=== PATIENT | male | born 2000 | race Two or more races ===

== ENCOUNTER 2024-10-30 18:16 | Emergency (ER) | payer OTHER ==
[~2024-10-30] VITALS: Ht 188 cm; Wt 131.0 kg
--- NOTE | 2024-10-30 18:39 | ED.PDOC ---
History of Present Illness HPI Comments 24Y M presents to ED for chief complaint abd pain. Pt states the abd pain is chronic and intermittent. Additional symptom includes constipation. Today, the pain worsened so pt came to the ED. Pt states he did not go to work and is requesting a work note. Time Seen by MD: 18:35 Reviewed Notes: Medications, Allergies Information Source: Patient Mode of Arrival: Ambulatory Severity: Mild Timing: Months Duration: Intermittent Past Medical History PAST MEDICAL HISTORY: Denies Surgical History: Denies all surgeries Family History Family History: Unknown Social History Smoker: Non-Smoker Alcohol: Denies ETOH Use Drugs: Denies Drug Use Lives In: Home Constitutional: denies: chills, diaphoresis, fatigue, fever, malaise, sweats, weakness, others EENTM: denies: blurred vision, double vision, ear bleeding, ear discharge, ear drainage, ear pain, ear ringing, eye pain, eye redness, hearing loss, mouth pain, mouth swelling, nasal discharge, nose bleeding, nose congestion, nose pain, photophobia, tearing, throat pain, throat swelling, voice changes, others Respiratory: denies: cough, hemoptysis, orthopnea, SOB at rest, shortness of breath, SOB with excertion, stridor, wheezing, others Cardiovascular: denies: chest pain, dizzy spells, diaphoresis, Dyspnea on exertion, edema, irregular heart beat, left arm pain, lightheadedness, palpitations, PND, syncope, others Gastrointestinal: reports: abdominal pain, constipated; denies: abdomen distended, blood streaked bowels, diarrhea, dysphagia, difficulty swallowing, hematemesis, melena, nausea, poor appetite, poor fluid intake, rectal bleeding, rectal pain, vomiting, others Genitourinary: denies: burning, dysuria, flank pain, frequency, hematuria, incontinence, penile discharge, penile sore, pain, testicle pain, testicle swelling, urgency, others Neurological: denies: dizziness, fainting, headache, left sided numbness, left sided weakness, numbness, paresthesia, pre-existing deficit, right sided numbness, right sided weakness, seizure, speech problems, tingling, tremors, weakness, others Musculoskeletal: denies: back pain, gout, joint pain, joint swelling, muscle pain, muscle stiffness, neck pain, others Integumetry: denies: bruises, change in color, change in hair/nails, dryness, laceration, lesions, lumps, rash, wounds, others Allergic/Immunocompromised: denies: Difficulty Healing, Frequent Infections, Hives, Itching, others Hematologic/Lymphatic: denies: anemia, blood clots, easy bleeding, easy bruising, swollen glands, others Endocrine: denies: excessive hunger, excessive sweating, excessive thirst, excessive urination, flushing, intolerance to cold, intolerance to heat, unexplained weight gain, unexplained weight loss, others Psychiatric: denies: anxiety, bipolar disorder, depression, hopeless, panic disorder, schizophrenia, sleepless, suicidal, others All Other Systems: Reviewed and Negative Physical Exam General Appearance: No Apparent Distress, Normal HEENT: Normal ENT Inspection, Pharynx Normal, TMs Normal Neck: Full Range of Motion, Non-Tender, Normal, Normal Inspection Respiratory: Chest Non-Tender, Lungs Clear, No Accessory Muscle Use, No Respiratory Distress, Normal Breath Sounds Cardiovascular: No Edema, No JVD, No Murmur, No Gallop, Normal Peripheral Pulses, Regular Rate/Rhythm Breast Exam: Deferred Gastrointestinal: No Organomegaly, Non Tender, No Pulsatile Mass, Normal Bowel Sounds, Soft Genitalia: Deferred Pelvic: Deferred Rectal: Deferred Extremities: No calf tenderness, Normal capillary refill, Normal inspection, Normal range of motion, Non-tender, No pedal edema Musculoskeletal : Apperance: Normal Neurologic: Alert, reacher II-XII nml as Tested, No Motor Deficits, Normal Affect, Normal Mood, No Sensory Deficits Cerebellar Function: Normal Reflexes: Normal Skin: Dry, Normal Color, Warm Lymphatic: No Adenopathy Was a procedure done? Was a procedure done?: No Differential Dx Considerations may include: constipation, gastroenteritis X-Ray, Labs, Meds, VS Comment This 24-year-old male presents secondary to several year history of new abdominal pain associated with constipation. He had pain earlier the day. He is currently completely asymptomatic. He has no other complaints such as headache, vision change, chest pain, flank pain, dysuria, urine frequency. Denies any fever, chills, sweats. Denies modifying factors. Denies radiation of symptoms. As the patient is asymptomatic and does the cause of his pain, he will be discharged home. He is asked to eat a heart healthy high-fiber diet. He is a very well hydrated. She will consider [id number] laxatives. I will discharge the patient home with a prescription for Metamucil and milk of magnesia. Time of 1ST Reevaluation: 19:05 Reevaluation 1ST: Unchanged Time of 2ND Reevaluation: 18:43 Reevaluation 2ND: Unchanged Patient Education/Counseling: Diagnosis, Treatment Family Education/Counseling: No Family Present Departure 1 Departure Time of Disposition: 18:44 Impression: Primary Impression: Abdominal pain Additional Impression: Constipation Disposition: 01 HOME / SELF CARE / HOMELESS Condition: Good Discharged With: Self Critical Care Note Critical Care Time?: No Stability Stability form required: No Heart Score Heart Score: Heart Score Response (Comments) Value History N/A 0 EKG N/A 0 Age N/A 0 Risk Factors N/A 0 Troponin N/A 0 Total 0 I personally scribed for SUSAN QUINTERO MD ([email or web address]) on 10/30/24 at 18:39. Electronically submitted by Radha Rubin ([email or web address]). SUSAN QUINTERO MD Oct 30, 2024 18:39
[2024-10-30] MEDS ORDERED: FIBE1CHW3 PO (18:45)
[2024-10-30 20:24] VITALS: BP 137/75; PULSE 61; RESP 18; TEMP 98.5; O2SAT 98
== END 2024-10-30 20:32 | disposition home or self-care (01) ==
LOC: ER 18:16
DX: K59.00 Constipation, unspecified (principal); R10.9 Unspecified abdominal pain

== ENCOUNTER 2024-11-10 18:46 | Emergency (ER) | payer OTHER ==
[~2024-11-10] VITALS: Ht 185.4 cm; Wt 127.0 kg
[2024-11-10 20:06] VITALS: BP 138/83; PULSE 79; RESP 17; TEMP 98.8; O2SAT 96
[2024-11-10] MEDS ORDERED: IBUP-1456 PO (20:41)
--- NOTE | 2024-11-10 20:42 | ED.PDOC ---
Musculoskeletal HPI Comments 24-year-old male presents to ER with complaints of right great toe pain x3 days. Patient reports he has been experiencing right great toe pain x3 days, denying any trauma/injury. He rates his current pain a 7/10 to right great toe without radiation. Denies use of medications for current symptoms. Patient presents to ER ambulatory on arrival, with steady gait, in no distress. Denies fever, body aches, chills, skin changes, numbness/tingling or any further symptoms/complaints Chief Complaint: Lower Extremity Time Seen by MD: 18:56 Primary Care Provider: UNKNOWN Reviewed Notes: Nurses Notes, Medications, Allergies Allergies: Coded Allergies: NO KNOWN ALLERGIES (Unverified , 10/30/24) Home Meds Active Scripts Ibuprofen (Ibuprofen) 800 Mg Tab, 1 TAB PO TID PRN, #30 TAB 0 Refills Prov:EDVIN FRANCIS 11/10/24 Information Source: Patient Mode of Arrival: Ambulatory Past Medical History PAST MEDICAL HISTORY: Denies Surgical History: Denies all surgeries Family History Family History: Unknown Social History Smoker: Non-Smoker Alcohol: Denies ETOH Use Drugs: Marijuana Lives In: Home Constitutional: denies: chills, diaphoresis, fatigue, fever, malaise, sweats, weakness, others EENTM: denies: blurred vision, double vision, ear bleeding, ear discharge, ear drainage, ear pain, ear ringing, eye pain, eye redness, hearing loss, mouth pain, mouth swelling, nasal discharge, nose bleeding, nose congestion, nose pain, photophobia, tearing, throat pain, throat swelling, voice changes, others Respiratory: denies: cough, hemoptysis, orthopnea, SOB at rest, shortness of breath, SOB with excertion, stridor, wheezing, others Cardiovascular: denies: chest pain, dizzy spells, diaphoresis, Dyspnea on exertion, edema, irregular heart beat, left arm pain, lightheadedness, palpitations, PND, syncope, others Gastrointestinal: denies: abdomen distended, abdominal pain, blood streaked bowels, constipated, diarrhea, dysphagia, difficulty swallowing, hematemesis, melena, nausea, poor appetite, poor fluid intake, rectal bleeding, rectal pain, vomiting, others Genitourinary: denies: burning, dysuria, flank pain, frequency, hematuria, incontinence, penile discharge, penile sore, pain, testicle pain, testicle swelling, urgency, others Neurological: denies: dizziness, fainting, headache, left sided numbness, left sided weakness, numbness, paresthesia, pre-existing deficit, right sided numbness, right sided weakness, seizure, speech problems, tingling, tremors, weakness, others Musculoskeletal: reports: others (As stated in HPI) Integumetry: denies: bruises, change in color, change in hair/nails, dryness, laceration, lesions, lumps, rash, wounds, others Allergic/Immunocompromised: denies: Difficulty Healing, Frequent Infections, Hives, Itching, others Hematologic/Lymphatic: denies: anemia, blood clots, easy bleeding, easy bruising, swollen glands, others Endocrine: denies: excessive hunger, excessive sweating, excessive thirst, excessive urination, flushing, intolerance to cold, intolerance to heat, unexplained weight gain, unexplained weight loss, others Psychiatric: denies: anxiety, bipolar disorder, depression, hopeless, panic disorder, schizophrenia, sleepless, suicidal, others Physical Exam General Appearance: No Apparent Distress, Obese HEENT: PERRL/EOMI Neck: Full Range of Motion, Non-Tender, Normal Respiratory: Chest Non-Tender, Lungs Clear, No Accessory Muscle Use, No Respiratory Distress, Normal Breath Sounds Cardiovascular: No Murmur, No Gallop, Regular Rate/Rhythm Breast Exam: Deferred Gastrointestinal: NOT DONE Genitalia: Deferred Pelvic: Deferred Rectal: Deferred Extremities: Normal capillary refill, Normal range of motion Musculoskeletal : Extremity Location: Great Toe (Slight TTP to right great toe noted. Patient able to move all toes of right foot. No deformity/skin changes appreciated. Pulses intact. Gait intact without abnormality) Neurologic: Alert, No Motor Deficits, Normal Affect, Normal Mood, No Sensory Deficits Cerebellar Function: Normal Reflexes: Normal Skin: Dry, Normal Color, Warm Peripheral Pulses: 2+ dorsalis pedis (R), 2+ dorsalis pedis (L) Lymphatic: No Adenopathy Was a procedure done? Was a procedure done?: No Sedation Sedation?: No Differential Diagnosis EXT Differential Diagnosis: Fracture, Dislocation, Neurovascular injury X-Ray, Labs, Meds, VS Vital Signs Date Time Temp Pulse Resp B/P (MAP) Pulse Ox O2 Delivery O2 Flow Rate FiO2 11/10/24 20:06 79 17 96 Room Air 11/10/24 20:06 98.8 79 17 138/83 (101) 96 98.8 11/10/24 19:57 98.8 79 17 138/83 (101) 96 Toradol 60 mg IM ordered Patient neurovascularly intact Advised on rest/no strenuous activity, elevation and alternate ice on/off as needed for pain Advised to follow up with PCP in 1-2 days Patient verbalized understanding and agreeable with current plan of care Advised to return to ER immediately if symptoms worsen Time of 1ST Reevaluation: 20:24 Reevaluation 1ST: N/A Patient Education/Counseling: Diagnosis, Treatment, Prognosis, Need For Follow Up Family Education/Counseling: No Family Present Departure 1 Departure Time of Disposition: 20:40 Impression: Primary Impression: Right foot sprain Qualified Codes: S93.601A - Unspecified sprain of right foot, initial encounter Disposition: HOME / SELF CARE / HOMELESS Condition: Stable e-Prescriptions Ibuprofen (Ibuprofen) 800 Mg Tab 1 TAB PO TID PRN, #30 TAB 0 Refills Prov: EDIVN FRANCIS 11/10/24 Discharged With: Self Critical Care Note Critical Care Time?: No Stability Stability form required: No Heart Score Heart Score: Heart Score Response (Comments) Value History N/A 0 EKG N/A 0 Age N/A 0 Risk Factors N/A 0 Troponin N/A 0 Total 0 EDVIN FRANCIS Nov 10, 2024 20:42
[2024-11-10] MEDS: KETOROLAC TROMETH 60MG/2ML VIAL IM ONE (20:50)
== END 2024-11-10 21:37 | disposition home or self-care (01) ==
LOC: ER 18:46
DX: S93.501A Unspecified sprain of right great toe, initial encounter (principal); X58.XXXA Exposure to other specified factors, initial encounter; Y93.89 Activity, other specified; Y92.89 Other specified places as the place of occurrence of the external cause; Y99.8 Other external cause status
CPT/HCPCS: 96372; 99283; J1885

== ENCOUNTER 2024-11-27 15:44 | Emergency (ER) | payer OTHER ==
[~2024-11-27] VITALS: Ht 185.4 cm; Wt 125.0 kg
[~2024-11-27 15:44] MED LIST: IBUP-1456 PO
[2024-11-27 18:54] VITALS: BP 132/85; PULSE 88; RESP 20; TEMP 98.7; O2SAT 95
[2024-11-27] MEDS ORDERED: METH4PAK PO (19:07)
[2024-11-27] MEDS ORDERED: AUG875T PO (19:07)
--- NOTE | 2024-11-27 19:08 | ED.PDOC ---
Eye-HPI HPI Comments 24-year-old male presents to the ED chief complaint flu-like symptoms x3 days patient reports sore throat, body aches, cough. Has been taking [id number] indications with little relief. Ill contacts at home. Denies vomiting, diarrhea, difficulty breathing, shortness breath or chest pain Chief Complaint: Flu like Time Seen by MD: 18:17 Primary Care Provider: UNKNOWN Reviewed Notes: Nurses Notes, Medications, Allergies Allergies: Coded Allergies: NO KNOWN ALLERGIES (Unverified , 10/30/24) Home Meds Active Scripts Methylprednisolone (Medrol Dosepak) 4 Mg Donte, 4 MG PO UD for 6 Days, #21 TAB UAD Prov:ELENA LYNCHK [employer] 11/27/24 Amoxicillin & Pot Clavulanate (AUGMENTIN TABLET) 875 Mg Tb, 875 MG PO BID for 7 Days, #14 TAB Prov:KANCHAN LYNCH [employer] 11/27/24 Ibuprofen (Ibuprofen) 800 Mg Tab, 1 TAB PO TID PRN, #30 TAB 0 Refills Prov:EDVIN FRANCIS 11/10/24 Information Source: Patient Mode of Arrival: Ambulatory Past Medical History PAST MEDICAL HISTORY: Denies Surgical History: Denies all surgeries Family History Family History: Unknown Social History Smoker: Non-Smoker Alcohol: Denies ETOH Use Drugs: Marijuana Lives In: Home Constitutional: reports: chills, fever; denies: diaphoresis, fatigue, malaise, sweats, weakness, others EENTM: reports: nasal discharge, throat pain, throat swelling; denies: blurred vision, double vision, ear bleeding, ear discharge, ear drainage, ear pain, ear ringing, eye pain, eye redness, hearing loss, mouth pain, mouth swelling, nose bleeding, nose congestion, nose pain, photophobia, tearing, voice changes, others Respiratory: reports: cough; denies: hemoptysis, orthopnea, SOB at rest, shor tness of breath, SOB with excertion, stridor, wheezing, others Cardiovascular: denies: chest pain, dizzy spells, diaphoresis, Dyspnea on exertion, edema, irregular heart beat, left arm pain, lightheadedness, palpitations, PND, syncope, others Gastrointestinal: denies: abdomen distended, abdominal pain, blood streaked bowels, constipated, diarrhea, dysphagia, difficulty swallowing, hematemesis, melena, nausea, poor appetite, poor fluid intake, rectal bleeding, rectal pain, vomiting, others Genitourinary: denies: burning, dysuria, flank pain, frequency, hematuria, incontinence, penile discharge, penile sore, pain, testicle pain, testicle swelling, urgency, others Neurological: denies: dizziness, fainting, headache, left sided numbness, left sided weakness, numbness, paresthesia, pre-existing deficit, right sided numbness, right sided weakness, seizure, speech problems, tingling, tremors, weakness, others Musculoskeletal: denies: back pain, gout, joint pain, joint swelling, muscle pain, muscle stiffness, neck pain, others Integumetry: denies: bruises, change in color, change in hair/nails, dryness, laceration, lesions, lumps, rash, wounds, others Allergic/Immunocompromised: denies: Difficulty Healing, Frequent Infections, Hives, Itching, others Hematologic/Lymphatic: denies: anemia, blood clots, easy bleeding, easy bruising, swollen glands, others Endocrine: denies: excessive hunger, excessive sweating, excessive thirst, excessive urination, flushing, intolerance to cold, intolerance to heat, unexplained weight gain, unexplained weight loss, others Psychiatric: denies: anxiety, bipolar disorder, depression, hopeless, panic disorder, schizophrenia, sleepless, suicidal, others Physical Exam General Appearance: No Apparent Distress, Normal HEENT: Pharyngeal Erythema, TMs Normal, Tonsillar Exudate (Grade 3 tonsils with exudate) Neck: Full Range of Motion, Non-Tender, Normal, Normal Inspection Respiratory: Chest Non-Tender, Lungs Clear, No Accessory Muscle Use, No Respiratory Distress, Normal Breath Sounds Cardiovascular: No Edema, No JVD, No Murmur, No Gallop, Normal Peripheral Pulses, Regular Rate/Rhythm Breast Exam: Deferred Gastrointestinal: No Organomegaly, Non Tender, No Pulsatile Mass, Normal Bowel Sounds, Soft Genitalia: Deferred Pelvic: Deferred Rectal: Deferred Extremities: No calf tenderness, Normal capillary refill, Normal inspection, Normal range of motion, Non-tender, No pedal edema Musculoskeletal : Apperance: Normal Neurologic: Alert, master planner II-XII nml as Tested, No Motor Deficits, Normal Affect, Normal Mood, No Sensory Deficits Cerebellar Function: Normal Reflexes: Normal Skin: Dry, Normal Color, Warm Lymphatic: No Adenopathy Was a procedure done? Was a procedure done?: No EENT DIFF Eye: N/A Sore Throat: Epiglottitis, Peritonsillar Abscess, Peritonsillar Cellulitis, Pharyngitis, Streptococcal, Viral Pharyngitis X-Ray, Labs, Meds, VS Vital Signs Date Time Temp Pulse Resp B/P (MAP) Pulse Ox O2 Delivery O2 Flow Rate FiO2 11/27/24 18:54 88 20 95 Room Air 11/27/24 18:54 98.7 88 20 132/85 (101) 95 98.7 11/27/24 16:17 98.7 88 20 132/88 (103) 95 X-Ray, Labs, Meds, VS Comment Likely bacterial. Shunt trial of antibiotics and Medrol Dosepak. Rest increase p.o. fluids with electrolytes consider popsicles for the sore throat follow up with PCP in 2-3 days as necessary ER return precautions given patient indicated understanding agrees with discharge plan of care. Time of 1ST Reevaluation: 19:07 Reevaluation 1ST: Improved Patient Education/Counseling: Diagnosis, Treatment, Prognosis, Need For Follow Up Family Education/Counseling: Diagnosis, Treatment, Prognosis, Need For Follow Up Departure 1 Departure Time of Disposition: 19:06 Impression: Primary Impression: Pharyngitis Qualified Codes: J02.9 - Acute pharyngitis, unspecified Disposition: 01 HOME / SELF CARE / HOMELESS Condition: Stable e-Prescriptions Methylprednisolone (Medrol Dosepak) 4 Mg Donte 4 MG PO UD for 6 Days, #21 TAB UAD Prov: KANCHAN LYNCH 11/27/24 Amoxicillin & Pot Clavulanate (AUGMENTIN TABLET) 875 Mg Tb 875 MG PO BID for 7 Days, #14 TAB Prov: KANCHAN LYNCH 11/27/24 Discharged With: Significant Other Critical Care Note Critical Care Time?: No Stability Stability form required: KANCHAN Lorenzana Nov 27, 2024 19:08
== END 2024-11-27 19:16 | disposition home or self-care (01) ==
LOC: ER 15:49
DX: J02.9 Acute pharyngitis, unspecified (principal); F15.90 Other stimulant use, unspecified, uncomplicated; Z79.899 Other long term (current) drug therapy

== ENCOUNTER 2025-03-06 14:19 | Emergency (ER) | payer OTHER ==
[~2025-03-06] VITALS: Ht 185.4 cm; Wt 126.9 kg
--- NOTE | 2025-03-06 14:31 | ED.PDOC ---
Back pain HPI HPI Comments HPI: Poor Historian. 24-year-old male presents to emergency depart for evaluation of left ankle pain status post basketball sprain injury where he twisted his ankle playing basketball. Denies any other injuries or trauma or fall. Patient states he has been ambulating on it and elevating it and applying ice. He came make sure everything is okay. Patient denies any numbness tingling sensation in his extremity. Patient is neurovascularly intact in the affected extremity. Patient was already wearing a ankle brace that is very appropriate and states that he has crutches at home. Past Medical History: Denies any Past Surgical History: Keloid removal Vitals: temperature of 99.5F, respiratory rate of 18, SpO2 of 97%RA, pulse rate of 91, and a blood pressure of 132/62 REVIEW OF SYSTEMS: CONSTITUTIONAL: Denies acute: fever, diaphoresis, chills, generalized weakness. HEAD: Denies acute: headache, photophobia Eyes: Denies acute: Double vision, vision loss, eye pain, eye discharge. EARS: Denies acute: tinnitus, hearing loss, ear discharge, ear pain, THROAT: Denies acute: sore throat, swelling, difficulty swallowing , pain with swallowing, change in voice. NECK: Denies acute: neck pain, neck swelling, stiff neck. HEART: Denies acute : chest pain, palpitations, LUNGS: Denies acute: SOB, wheezing, cough, hemoptysis ABDOMEN: Denies acute: abdominal pain, Nausea, Vomiting, diarrhea, melena , hematemesis, hematochezia SKIN: Denies acute: rash, redness, lesions, itchiness. EXTREMITIES: Denies acute: calf pain, numbness, tingling, weakness, Denies acute: Low back pain. Neuro: Denies acute: focal neurological deficit, motor or sensory focal neurological deficit, tremors, seizure like activity, confusion, dizziness, change in mental status, loss of bowel or bladder function, cauda equina like symptoms. : Denies acute: dysuria, hematuria, flank pain, increase in urinary frequency. PSYCH: Denies acute: hallucination, suicidal ideation, homicidal ideation. PHYSICAL EXAM: General: -----no---acute distress, awake and alert. Head: normocephalic, atraumatic. Neck: supple, trachea is midline, no swelling. Throat: Normal phonation. Eyes:, no erythema, no purulent discharge, no proptosis, no icterus. Heart: regular rate, regular rhythm, no significant murmur appreciated. Lungs: no apparent respiratory distress, Able to speak in full sentences. No wheezing, no rhonchi, no crackles. No stridors Clear to auscultation bilaterally. Abdomen: non tender to palpation, non distended, soft, no guarding, no rebound, + bowel sounds. Neuro: Awake, Alert, oriented to name, self, situation, follows commands GCS=15. Speech is normal. Skin: no petechia, no purpura, no cyanosis, non-pale, not jaundice. Lower extremities: --no - Pitting edema no deformity, minimal left lateral malleoli focal swelling with mild tenderness to palpation. Makes eye contact. moves all four extremities. Patient is neurovascularly intact in the affected extremity. Pedal pulses palpable. Sensory and motor are present. Minimal tenderness to palpation anterior to the left lateral malleoli Face: no apparent facial droop. Ambulating in the ED independently. Pedal pulses are palpable. ED COURSE: Chief Complaint: Lower Extremity Time Seen by MD: 14:30 Primary Care Provider: UNKNOWN Reviewed Notes: Nurses Notes, Medications Allergies: Coded Allergies: NO KNOWN ALLERGIES (Unverified , 10/30/24) Home Meds Active Scripts Ibuprofen (Ibuprofen) 800 Mg Tab, 1 TAB PO TID PRN, #30 TAB 0 Refills Prov:EDVIN FRANCIS 11/10/24 Information Source: Patient Mode of Arrival: Ambulatory Past Medical History PAST MEDICAL HISTORY: Denies Surgical History: Denies all surgeries Family History Family History: Unknown Social History Smoker: Non-Smoker Alcohol: Denies ETOH Use Drugs: Marijuana Lives In: Home Was a procedure done? Was a procedure done?: No Back Pain Differential Dx Differential Diagnosis: Musculoskeletal Pain, Other (Dislocation, fracture, ligamental injury, bursitis, joint effusion, compartment syndrome, septic joint,) X-Ray, Labs, Meds, VS Vital Signs Date Time Temp Pulse Resp B/P (MAP) Pulse Ox O2 Delivery O2 Flow Rate FiO2 03/06/25 15:43 98.7 72 16 129/68 (88) 95 98.7 03/06/25 15:43 72 16 95 Room Air* 0 21 03/06/25 14:21 99.5 91 18 132/62 (85) 97 99.5 [facility] [id number] [facility] [id number] Ph: [phone] DIAGNOSTIC IMAGING Diagnostic Imaging Report : [id number] Signed PATIENT: PRAVIN BOLES JR ACCT: [id number] UNIT: [id number] : 2000 LOC: ER ROOM / BED: / AGE / SEX: 24 / M ADM STATUS: REG ER SERVICE 1424 ORDERING PHYSICIAN: JOSE GUADALUPE DEVINE DO PROCEDURE(s): LANKL - L ANKLE 3 VIEW REASON: pain injury ORDER NUMBER(s): [id number], ACCESSION NUMBER(s): [id number] EXAM: XY L ANKLE 3 VIEW CLINICAL HISTORY: pain injury COMPARISON: None TECHNIQUE: XY L ANKLE 3 VIEW Findings/Impression: 3 views of the left ankle. There is no evidence of an acute fracture, dislocation, blastic, or lytic lesions. No radiopaque foreign bodies. No joint effusion or superficial soft tissue abnormalities. ATED BY: KYRA RICHMOND DO DICTATED DATE/TIME: 03/06/25 1500 SIGNED BY: KYRA RICHMOND DO SIGNED DATE/TIME: 03/06/25 1500 CC: Time of 1ST Reevaluation: 14:30 Reevaluation 1ST: Unchanged Patient Education/Counseling: Diagnosis, Treatment Family Education/Counseling: No Family Present Comments Patient presented with the above HPI.---left ankle sprain---workup was initiated. patient was found with the above mentioned diagnosis. the following medications were ordered: please refer to order lists of meds and tests obtained by myself Dr. Devine. Patient ED course and VS have been stabilized. Patient has been reassessed in the ED and remained in a stable condition. Pertinent incidental findings were discussed with the patient and/or family. Patient/family voices understanding and is agreeable with plan. Patient has been observed in the ED adequate length of time to insure improvement/stability. Escalation of care considered: Consideration of escalation to observation or admission Patient was DISCHARGED home in a stable condition. All the reports of any imaging studies that were ordered by myself were reviewed by myself. Departure 1 Departure Time of Disposition: 14:32 Impression: Primary Impression: Left ankle sprain Disposition: 01 HOME / SELF CARE / HOMELESS Condition: Stable Additional Instructions: Additional instructions: You MUST follow-up with your primary care/family doctor in 1 to 2 days. If you are unable to see your primary care/family doctor, please return to our emergency room for re-assessment and re-evaluation in 1 to 2 days. Return to the emergency room here in our facility or to the nearest ER [facility] if y our symptoms change or worsen. CONSULTATIONS: you MUST Follow-up for consultation as soon as possible with: -orthopedic doctor in 1-2 days. You MUST call the consultants office yourself to make an appointment. You may need to arrange that through your insurance and/or your primary/family doctor. If you are unable to see the reimbursement consultant in 1 to 2 days, you must return to our emergency room (or any other ER of your choice) for re-assessment and re- evaluation. Adequate fluid hydration. Continue wearing your ankle brace. Leg elevation. Use [id number] Tylenol ibuprofen with food as instructed for pain control. Below is a copy of your radiological report for follow up: [place] [address] Ph: [phone] DIAGNOSTIC IMAGING Diagnostic Imaging Report : [id number] Signed PATIENT: PRAVIN BOLES JR ACCT: [id number] UNIT: [id number] : 2000 LOC: ER ROOM / BED: / AGE / SEX: 24 / M ADM STATUS: REG ER SERVICE 1424 ORDERING PHYSICIAN: JOSE GUADALUPE DEVINE DO PROCEDURE(s): LANKL - L ANKLE 3 VIEW REASON: pain injury ORDER NUMBER(s): [id number], ACCESSION NUMBER(s): [id number] EXAM: XY L ANKLE 3 VIEW CLINICAL HISTORY: pain injury COMPARISON: None TECHNIQUE: XY L ANKLE 3 VIEW Findings/Impression: 3 views of the left ankle. There is no evidence of an acute fracture, dislocation, blastic, or lytic lesions. No radiopaque foreign bodies. No joint effusion or superficial soft tissue abnormalities. ATED BY: KYRA RICHMOND DO DICTATED DATE/TIME: 03/06/25 1500 SIGNED BY: KYRA RICHMOND DO SIGNED DATE/TIME: 03/06/25 1500 CC: Discharged With: Self Critical Care Note Critical Care Time?: No I personally scribed for JOSE GUADALUPE DEVINE DO ([email or web address]) on 03/06/25 at 14:31. Electronically submitted by Axel Bennett ([email or web address]). I personally scribed for JOSE GUADALUPE DEVINE DO ([email or web address]) on 03/06/25 at 14:40. Electr onically submitted by Axel Bennett ([email or web address]). I personally scribed for JOSE GUADALUPE DEVINE DO ([email or web address]) on 03/06/25 at 15:13. Marlys ctronically submitted by Axel Bennett ([email or web address]). JOSE GUADALUPE DEVINE DO Mar 06, 2025 14:31
--- NOTE | 2025-03-06 15:02 | DVH ---
EXAM: XY L ANKLE 3 VIEW CLINICAL HISTORY: pain injury COMPARISON: None TECHNIQUE: XY L ANKLE 3 VIEW Findings/Impression: 3 views of the left ankle. There is no evidence of an acute fracture, dislocation, blastic, or lytic lesions. No radiopaque foreign bodies. No joint effusion or superficial soft tissue abnormalities.
[2025-03-06 15:43] VITALS: BP 129/68; PULSE 72; RESP 16; TEMP 98.7; O2SAT 95
== END 2025-03-06 15:52 | disposition home or self-care (01) ==
LOC: ER 14:19
DX: S93.492A Sprain of other ligament of left ankle, initial encounter (principal); X50.1XXA Overexertion from prolonged static or awkward postures, initial encounter; Y93.67 Activity, basketball; Y92.89 Other specified places as the place of occurrence of the external cause; Y99.8 Other external cause status
CPT/HCPCS: 73610

== ENCOUNTER 2025-03-15 21:45 | Emergency (ER) | payer OTHER ==
[~2025-03-15] VITALS: Ht 185.4 cm; Wt 129.5 kg
--- NOTE | 2025-03-16 00:25 | ED.PDOC ---
History of Present Illness HPI Comments 24-year-old male presents with a request for medical clearance. Patient reports that he was seen a week ago for ankle sprain and was taken off of work. Patient would like to be cleared to go back to work. Chief Complaint: Medical Clearance Time Seen by MD: 00:21 Primary Care Provider: UNKNOWN Reviewed Notes: Medications, Allergies Allergies: Coded Allergies: NO KNOWN ALLERGIES (Unverified , 10/30/24) Home Meds Active Scripts Ibuprofen (Ibuprofen) 800 Mg Tab, 1 TAB PO TID PRN, #30 TAB 0 Refills Prov:EDVIN FRANCIS 11/10/24 Information Source: Patient Mode of Arrival: Ambulatory Severity: Moderate Timing: Days Duration: Intermittent Prehospital treatment: None Past Medical History PAST MEDICAL HISTORY: Denies Surgical History: Denies all surgeries Family History Family History: Unknown Social History Smoker: Non-Smoker Alcohol: Denies ETOH Use Drugs: Marijuana Lives In: Home Constitutional: denies: chills, diaphoresis, fatigue, fever, malaise, sweats, weakness, others EENTM: denies: blurred vision, double vision, ear bleeding, ear discharge, ear drainage, ear pain, ear ringing, eye pain, eye redness, hearing loss, mouth pain, mouth swelling, nasal discharge, nose bleeding, nose congestion, nose pain, photophobia, tearing, throat pain, throat swelling, voice changes, others Respiratory: denies: cough, hemoptysis, orthopnea, SOB at rest, shortness of breath, SOB with excertion, stridor, wheezing, others Cardiovascular: denies: chest pain, dizzy spells, diaphoresis, Dyspnea on exertion, edema, irregular heart beat, left arm pain, lightheadedness, palpitations, PND, syncope, others Gastrointestinal: denies: abdomen distended, abdominal pain, blood streaked bowels, constipated, diarrhea, dysphagia, difficulty swallowing, hematemesis, melena, nausea, poor appetite, poor fluid intake, rectal bleeding, rectal pain, vomiting, others Genitourinary: denies: burning, dysuria, flank pain, frequency, hematuria, incontinence, penile discharge, penile sore, pain, testicle pain, testicle swelling, urgency, others Neurological: denies: dizziness, fainting, headache, left sided numbness, left sided weakness, numbness, paresthesia, pre-existing deficit, right sided numbness, right sided weakness, seizure, speech problems, tingling, tremors, weakness, others Musculoskeletal: denies: back pain, gout, joint pain, joint swelling, muscle pa in, muscle stiffness, neck pain, others Integumetry: denies: bruises, change in color, change in hair/nails, dryness, laceration, lesions, lumps, rash, wounds, others Allergic/Immunocompromised: denies: Difficulty Healing, Frequent Infections, Hives, Itching, others Hematologic/Lymphatic: denies: anemia, blood clots, easy bleeding, easy bruising, swollen glands, others Endocrine: denies: excessive hunger, excessive sweating, excessive thirst, excessive urination, flushing, intolerance to cold, intolerance to heat, unexplained weight gain, unexplained weight loss, others Psychiatric: denies: anxiety, bipolar disorder, depression, hopeless, panic disorder, schizophrenia, sleepless, suicidal, others All Other Systems: Reviewed and Negative Physical Exam General Appearance: No Apparent Distress, Normal HEENT: Normal ENT Inspection, Pharynx Normal, TMs Normal Neck: Full Range of Motion, Non-Tender, Normal, Normal Inspection Respiratory: Chest Non-Tender, Lungs Clear, No Accessory Muscle Use, No Respiratory Distress, Normal Breath Sounds Cardiovascular: No Edema, No JVD, No Murmur, No Gallop, Normal Peripheral Pulses, Regular Rate/Rhythm Breast Exam: Deferred Gastrointestinal: No Organomegaly, Non Tender, No Pulsatile Mass, Normal Bowel Sounds, Soft Genitalia: Deferred Pelvic: Deferred Rectal: Deferred Extremities: No calf tenderness, Normal capillary refill, Normal inspection, Normal range of motion, Non-tender, No pedal edema Musculoskeletal : Apperance: Normal Neurologic: Alert, 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 Was a procedure done?: No Differential Dx Considerations may include: Ankle sprain, medical clearance X-Ray, Labs, Meds, VS Vital Signs Date Time Temp Pulse Resp B/P (MAP) Pulse Ox O2 Delivery O2 Flow Rate FiO2 03/15/25 22:57 98.3 68 18 140/63 (88) 97 98.3 Time of 1ST Reevaluation: 00:51 Reevaluation 1ST: Unchanged Patient Education/Counseling: Diagnosis, Treatment Family Education/Counseling: No Family Present Departure 1 Departure Time of Disposition: 00:30 (Patient presented in requesting medical clearance to return to work. Patient with no complaints.) Impression: Primary Impression: Left ankle sprain Qualified Codes: S93.402D - Sprain of unspecified ligament of left ankle, subsequent encounter Disposition: HOME / SELF CARE / HOMELESS Condition: Stable Additional Instructions: You are cleared to return to work as long as you are feeling well. For pain you can take the followinam: Ibuprofen 400mg with food Noon: Acetaminophen 1000mg 4pm: Ibuprofen 400mg with food 8pm: Acetaminophen 1000mg You should follow up with your regular doctor within one week to ensure you are doing better. If your symptoms worsen or you have any other concerns then please return to the ER. Discharged With: Self Critical Care Note Critical Care Time?: No Stability Stability form required: No Heart Score Heart Score: Heart Score Response (Comments) Value History N/A 0 EKG N/A 0 Age N/A 0 Risk Factors N/A 0 Troponin N/A 0 Total 0 I personally scribed for ADELFO EDWARDS MD ([email or web address]) on 03/16/25 at 00:25. Electronically submitted by Niall Wong ([email or web address]). ADELFO EDWARDS MD Mar 16, 2025 00:25
[2025-03-16 01:30] VITALS: BP 127/89; PULSE 89; RESP 19; TEMP 98.6; O2SAT 97
== END 2025-03-16 01:35 | disposition home or self-care (01) ==
LOC: ER 21:45
DX: S93.402D Sprain of unspecified ligament of left ankle, subsequent encounter (principal); F12.90 Cannabis use, unspecified, uncomplicated; Z79.899 Other long term (current) drug therapy; X58.XXXD Exposure to other specified factors, subsequent encounter